=== PATIENT | male | born 1980 | race Caucasian/White ===

== ENCOUNTER 2017-09-25 11:17 | Emergency (ER) | payer OTHER ==
[~2017-09-25] VITALS: Ht 190.5 cm; Wt 92.4 kg
[2017-09-25 11:23] VITALS: Ht 190.5 cm; Wt 92.4 kg
[2017-09-25] MEDS ORDERED: LEVO150T PO (12:04)
[2017-09-25 14:00] VITALS: BP 125/87; PULSE 98; O2SAT 96
--- NOTE | 2017-09-25 14:15 | EMERGENCY ROOM VISIT NOTE ---
ED Visit Note First contact with patient: 11:30 CHIEF COMPLAINT: Suture removal/wound re-check HPI: This patient presents to the ED today for removal of sutures that were placed 13 days ago. The patient had a crush injury, followed by cellulitis and surgery for abscess drainage. The patient had been admitted to a hospital in [place] for 7 days. The patient states he has been unable to work, so had to move back to [place] to live with his mother, as he was unable to pay rent to his roommate. He was scheduled for follow-up with surgeon today, but was unable to make it due to the distance. He did not contact his surgeon, but decided to come to the emergency Department for wound recheck by a medical provider. There has been no swelling, redness, or drainage from the wound. The patient feels like the laceration is healing well. REVIEW OF SYSTEMS: A complete 10 point review of systems was reviewed with the patient with pertinent positives and negatives as per history of present illness. All else were negative. PMH: Hypothyroidism, gout SOCIAL HISTORY: Patient lives locally. He is from the [place] area. He denies drug use. He admits to smoking cigarettes and socially drinking alcohol. PHYSICAL EXAM: Vital Signs: Reviewed Nurse's notes. The patient was initially tachycardic, but the tachycardia improved by discharge. There is a sutured wound on the right thumb with no signs of infection. There is no erythema, swelling, or tenderness. The wound edges are healing, however, the wound edges are dry. EMERGENCY DEPARTMENT COURSE: I contacted the patient's surgeon's office in [place]. I spoke with an office staff member, who states the patient was to have sutures removed today. He did not call or show up for his appointment, but the staff did recommend follow-up at some point for re-check post-op. They did send information regarding the surgery and plan to the ED for review. The sutures were removed without any difficulty and there was no separation of the wound edges. The patient had removed the dry/ skin of the wound edges prior to suture removal. The wound was bandaged with bacitracin ointment and a bandage. I discussed with the patient the importance of orthopedic follow-up, especially with his surgeon. The patient states he understands. Prior to discharge, the patient did request pain medication prescription. He states "I have Percs, but I know there is something stronger than Tylenol, but not a narcotic. I was hoping you could give me something like that." I discussed proper pain management with the patient and advised him that at this point after his procedure, I recommend follow-up with his surgeon if he continues to need pain medication. I did offer diclofenac, meloxicam, prescription ibuprofen, and prescription Naproxen, but the patient states he has all of those at home. He states "A friend told me about some medication that starts with a T..." I advised him that this is likely Tramadol, and that Tramadol is a narcotic. Again , I discussed pain management at home with ibuprofen and Tylenol and the patient states he does not wish to take that many pills every 3-4 hours. I again offered him a prescription NSAID and he declines. I attest that I have personally reviewed the patient's current medication list. Patient was found to have normal blood pressure on screening and does not require follow-up. DIFFERENTIAL DIAGNOSIS: Laceration, fracture, abscess, wound dehiscence, cellulitis, infection, abscess, malignancy, and others DIAGNOSIS: Healing laceration and suture removal Current/Historical Medications Scheduled Levothyroxine Sodium (Synthroid), 150 MCG PO QAM Allergies Coded Allergies: No Known Allergies (Unverified , 09/25/17) Vital Signs Date Time Temp Pulse Resp B/P (MAP) Pulse Ox O2 Delivery O2 Flow Rate FiO2 09/25/17 14:00 98 16 125/87 96 09/25/17 11:23 36.8 120 18 133/93 96 Room Air Departure Information Impression Primary Impression: Injury of thumb, right, superficial, infected Additional Impressions: Cellulitis of thumb, right Encounter for removal of sutures Dispostion Home / Self-Care Condition GOOD Referrals Dr. Vance No Doctor, Assigned (PCP) Mark Yi MD Patient Instructions ED Contusion Finger, ED Infec Skin Cellulitis, ED Wound Check Sutr Removal Infec , [facility] Additional Instructions You seen in the emergency department today for suture removal and wound check. As discussed, the wound on your thumb does not appear to be infected at this time. The sutures were removed without difficulty. Ibuprofen(Motrin, Advil) may be used for fever or pain. Use 600mg every six hours as needed. Take with food. Avoid using more than 2400mg in a 24 hour period. Do not use 2400mg per day for more than three consecutive days without physician direction. Prolonged inappropriate use can lead to stomach upset or ulcers. (AND/OR) Acetaminophen(Tylenol) may be used for fever or pain. Use 1000mg every six hours as needed. Avoid using more than 3000mg in a 24 hour period. Please keep the wound bandaged with antibiotic ointment (Bacitracin or Triple Antibiotic) and clean gauze. Please do not soak the wound in water. Change the bandage at least once or twice daily. Return for any redness, significant swelling, puslike drainage, fever, elevated heart rate, difficulty breathing, nausea, or vomiting. As discussed, it is imperative that you follow-up with your surgeon. Please try to schedule appointment with your surgeon in [place] for recheck and further evaluation. Contact their office at the number provided. If you are absolutely unable to follow up with the surgeon, contact the local orthopedic surgeon and attempt to be seen for follow-up. If you cannot be seen by orthopedics, return to the emergency department in 3-5 days for wound recheck. Problem Qualifiers Primary Impression: Injury of thumb, right, superficial, infected Encounter type: subsequent encounter Qualified Codes: S60.931D - Unspecified superficial injury of right thumb, subsequent encounter; L08.9 - Local infection of the skin and subcutaneous tissue, unspecified
== END 2017-09-25 14:25 | disposition home or self-care (01) ==
LOC: C.EDB 11:19 → C.EDC 14:25
DX: S60.931D Unspecified superficial injury of right thumb, subsequent encounter (principal); X58.XXXD Exposure to other specified factors, subsequent encounter; L08.9 Local infection of the skin and subcutaneous tissue, unspecified; L03.011 Cellulitis of right finger; E03.9 Hypothyroidism, unspecified; F17.210 Nicotine dependence, cigarettes, uncomplicated; Z79.899 Other long term (current) drug therapy

== ENCOUNTER 2017-10-07 21:41 | Emergency (ER) | payer OTHER ==
[~2017-10-07] VITALS: Ht 190.5 cm; Wt 87.6 kg
[~2017-10-07 21:41] MED LIST: LEVO150T PO
[2017-10-07 21:54] VITALS: TEMP 36.7
[2017-10-07] MEDS ORDERED: FAMOTIDINE 20MG/5ML IV PUSH IV STA (21:56)
[2017-10-07] MEDS ORDERED: ONDANSETRON INJ 2 MG/ML 2 ML VIAL IV STA (21:56)
[2017-10-07] MEDS ORDERED: SODIUM CHLORIDE 0.9% 1000ML 1,000 ML IV STA (21:56)
[2017-10-07 22:13] VITALS: Ht 190.5 cm; Wt 87.6 kg
--- NOTE | 2017-10-07 22:21 | DIAGNOSTIC IMAGING REPORT ---
SINGLE VIEW CHEST CLINICAL HISTORY: Sepsis. FINDINGS: An AP, portable, upright chest radiograph is obtained. No prior studies are available for comparison at the time of dictation. The examination is degraded by portable technique and patient rotation. The cardiomediastinal silhouette is unremarkable. The lungs and pleural spaces are clear. No pneumothorax is seen. The bony thorax is grossly intact. IMPRESSION: No active disease in the chest. Electronically signed by: Hema Carter M.D. 10/07/2017 10:20 PM Dictated Date/Time: 10/07/2017 10:19 PM
[2017-10-07 22:23] LABS: BASO % 0.3 %; BASO ABS # 0.03 K/uL (0-0.2); EOS % 0.5 %; EOS ABS # 0.05 K/uL (0-0.5); HEMOGLOBIN 15.4 g/dL (14.0-18.0); IG# 0.02 K/uL (0.00-0.02); LYMPH % 19.6 %; LYMPH ABS # 1.98 K/uL (1.2-3.4); MEAN CELL VOLUME 88.5 fL (80-100); MEAN CORPUSCULAR HGB CONC 32.8 g/dl (32-36); MEAN PLATELET VOLUME 10.1 fL (7.4-10.4); MONO % 8.4 %; MONO ABS # 0.85 K/uL (0.11-0.59); NEUT ABS # 7.19 K/uL (1.4-6.5); PLATELET COUNT 320 K/uL (130-400); RED CELL DISTRIBUTION WIDTH CV 14.6 % (11.5-14.5); RED CELL DISTRIBUTION WIDTH SD 46.8 fL (36.4-46.3); WHITE BLOOD COUNT 10.12 K/uL (4.8-10.8)
[2017-10-07 22:28] LABS: ALBUMIN 4.3 gm/dl (3.4-5.0); ALT/SGPT 19 U/L (12-78); BLOOD UREA NITROGEN 10 mg/dl (7-18); CALCIUM 9.4 mg/dl (8.5-10.1); CARBON DIOXIDE 26 mmol/L (21-32); CREATININE 1.35 mg/dl (0.60-1.40); GLUCOSE 108 mg/dl (70-99); POTASSIUM 3.6 mmol/L (3.5-5.1); SODIUM 140 mmol/L (136-145)
[2017-10-07 22:39] LABS: ALKALINE PHOSPHATASE 67 U/L (45-117); AST/SGOT 14 U/L (15-37); TOTAL PROTEIN 8.4 gm/dl (6.4-8.2)
[2017-10-07 22:52] LABS: INFLUENZA B ANTIGEN Neg for Influ B (NEG)
[2017-10-07 22:56] LABS: INR 1.1 (0.9-1.1); PTT PATIENT 32.4 SECONDS (21.0-31.0)
[2017-10-07] MEDS ORDERED: LORAZEPAM 2 MG/ML 1 ML VIAL IV STA (23:00)
[2017-10-08] MEDS ORDERED: LEVOTHYROXINE 175 MCG TAB PO STA (00:54)
[2017-10-08] MEDS ORDERED: LEVO175T PO (01:43)
[2017-10-08] MEDS ORDERED: ONDANSETRON HOME PACK 4MG OD TAB PO ONE (01:45)
[2017-10-08] MEDS ORDERED: LEVOTHYROXINE 175 MCG TAB PO ONE (02:30)
[2017-10-08 02:49] VITALS: BP 125/89; PULSE 77; O2SAT 98
--- NOTE | 2017-10-08 05:47 | EMERGENCY ROOM VISIT NOTE ---
History First contact with patient: 21:45 Chief Complaint: FLU LIKE SX Stated Complaint: FLU SYMPTOMS History of Present Illness The patient is a 36 year old male who presents to the Emergency Room with complaints of nausea, vomiting, diarrhea, upset stomach with subjective fever and chills and feeling fatigued for the past day. Patient states he has snorted heroin recently. He has not been taking his Synthroid. Patient states he is here visiting friends and was told last month at [facility] that he has an aortic aneurysm. He is concerned about this. He does not know the size. He has not followed up for it yet. Patient was at [facility] for a thumb infection. Patient denies IV drug abuse, chest pain, dyspnea, headache , neck status, sore throat, rashes, leg swelling. Review of Systems See HPI for pertinent positives & negatives. A total of 10 systems reviewed and were otherwise negative. Past Medical/Surgical History Hypothyroidism Social History Smoking Status: Current Every Day Smoker Alcohol Use: occasionally Drug Use: heroin Current/Historical Medications Scheduled Levothyroxine Sodium (Synthroid), 150 MCG PO QAM Levothyroxine Sodium (Synthroid), 175 MCG PO DAILY Physical Exam Vital Signs Date Time Temp Pulse Resp B/P (MAP) Pulse Ox O2 Delivery O2 Flow Rate FiO2 10/08/17 02:49 77 18 125/89 98 10/08/17 00:46 77 18 132/85 98 Room Air 10/07/17 23:04 52 18 143/102 98 Room Air 10/07/17 22:21 55 12 134/102 98 60 140/99 83 167/124 10/07/17 21:54 36.7 61 18 143/102 99 Room Air 10/07/17 21:49 56 Physical Exam VITALS: Vitals are noted on the nurse's note and reviewed by myself. Vital signs stable. GENERAL: White male with multiple tattoos and eyelid tattoos, in no acute distress, nondiaphoretic, well-developed well-nourished. SKIN: The skin was without rashes, erythema, edema, or bruising. There is no tenting of the skin. Capillary reflex less than 2 seconds. HEAD: Normocephalic atraumatic. EARS: External auditory canals clear, tympanic membranes pearly suarez without erythema or effusion bilaterally. EYES: Pupils equal round and reactive to light and accommodation. Conjunctivae without injection, sclerae without icterus. Extraocular movements intact. NOSE: Patent, turbinates without inflammation or discharge. MOUTH: Mucous membranes mildly dry. Pharynx without erythema or exudate. Uvula midline. Airway patent. Tongue does not deviate. NECK: Supple without nuchal rigidity. No lymphadenopathy. No thyromegaly. Cervical spine is nontender. No JVD. HEART: Regular rate and rhythm without murmurs gallops or rubs. LUNGS: Clear to auscultation bilaterally without wheezes, rales or rhonchi. No dullness to percussion. No retractions or accessory muscle use. ABDOMEN: Positive bowel sounds x 4. Normal tympanic percussion. Soft, nontender, without masses or organomegaly. Rodriguez sign negative. No guarding or rebound tenderness. MUSCULOSKELETAL: No muscle atrophy, erythema, or edema noted. NEURO: Patient was alert and oriented to person place and time. Normal sensation to light and sharp touch. No focal neurological deficits. Medical Decision & Procedures Laboratory Results 10/07/17 21:50 Red Blood Count 5.31, Mean Corpuscular Volume 88.5, Mean Corpuscular Hemoglobin 29.0, Mean Corpuscular Hemoglobin Concent 32.8, Mean Platelet Volume 10.1, Neutrophils (%) (Auto) 71.0, Lymphocytes (%) (Auto) 19.6, Monocytes (%) (Auto) 8.4, Eosinophils (%) (Auto) 0.5, Basophils (%) (Auto) 0.3, Neutrophils # (Auto) 7.19, Lymphocytes # (Auto) 1.98, Monocytes # (Auto) 0.85, Eosinophils # (Auto) 0.05, Basophils # (Auto) 0.03 10/07/17 21:50 Test 10/07/17 21:50 10/07/17 22:13 10/07/17 22:26 10/08/17 00:40 White Blood Count 10.12 K/uL (4.8-10.8) Red Blood Count 5.31 M/uL (4.7-6.1) Hemoglobin 15.4 g/dL (14.0-18.0) Hematocrit 47.0 % (42-52) Mean Corpuscular Volume 88.5 fL (80-100) Mean Corpuscular Hemoglobin 29.0 pg (25-34) Mean Corpuscular Hemoglobin Concent 32.8 g/dl (32-36) Platelet Count 320 K/uL (130-400) Mean Platelet Volume 10.1 fL (7.4-10.4) Neutrophils (%) (Auto) 71.0 % Lymphocytes (%) (Auto) 19.6 % Monocytes (%) (Auto) 8.4 % Eosinophils (%) (Auto) 0.5 % Basophils (%) (Auto) 0.3 % Neutrophils # (Auto) 7.19 K/uL (1.4-6.5) Lymphocytes # (Auto) 1.98 K/uL (1.2-3.4) Monocytes # (Auto) 0.85 K/uL (0.11-0.59) Eosinophils # (Auto) 0.05 K/uL (0-0.5) Basophils # (Auto) 0.03 K/uL (0-0.2) RDW Standard Deviation 46.8 fL (36.4-46.3) RDW Coefficient of Variation 14.6 % (11.5-14.5) Immature Granulocyte % (Auto) 0.2 % Immature Granulocyte # (Auto) 0.02 K/uL (0.00-0.02) Erythrocyte Sedimentation Rate 32 mm/hr (0-14) Prothrombin Time 11.2 SECONDS (9.0-12.0) Prothromb Time International Ratio 1.1 (0.9-1.1) Activated Partial Thromboplast Time 32.4 SECONDS (21.0-31.0) Partial Thromboplastin Ratio 1.2 Anion Gap 11.0 mmol/L (3-11) Est Creatinine Clear Calc Drug Dose 90.4 ml/min Estimated GFR () 77.7 Estimated GFR (Non- 67.1 BUN/Creatinine Ratio 7.3 (10-20) Calcium Level 9.4 mg/dl (8.5-10.1) Magnesium Level 2.4 mg/dl (1.8-2.4) Total Bilirubin 1.6 mg/dl (0.2-1) Aspartate Amino Transf (AST/SGOT) 14 U/L (15-37) Alanine Aminotransferase (ALT/SGPT) 19 U/L (12-78) Alkaline Phosphatase 67 U/L (45-117) Troponin I < 0.015 ng/ml (0-0.045) C-Reactive Protein 0.36 mg/dl (0-0.29) Total Protein 8.4 gm/dl (6.4-8.2) Albumin 4.3 gm/dl (3.4-5.0) Globulin 4.1 gm/dl (2.5-4.0) Albumin/Globulin Ratio 1.0 (0.9-2) Thyroid Stimulating Hormone (TSH) 64.300 uIu/ml (0.300-4.500) Free Thyroxine 0.55 ng/dl (0.80-1.60) Total Triiodothyronine 0.42 ng/ml (0.60-1.81) Influenza Type A Antigen Neg for Influ A (NEG) Influenza Type B Antigen Neg for Influ B (NEG) Bedside Lactic Acid Venous 1.42 mmol/L (0.90-1.70) Urine Opiates Screen POS (NEG) Urine Methadone, Qualitative NEG (NEG) Urine Barbiturates NEG (NEG) Urine Phencyclidine (PCP) Level NEG (NEG) Ur Amphetamine/Methamphetamine NEG (NEG) MDMA (Ecstasy) Screen NEG (NEG) Urine Benzodiazepines Screen NEG (NEG) Urine Cocaine Metabolite NEG (NEG) Urine Marijuana (THC) NEG (NEG) Medications Administered Medications (Trade) Dose Ordered Sig/Mateo Route Start Time Stop Time Status Last Admin Dose Admin Sodium Chloride 1,000 ml @ 999 mls/hr Q1H1M STAT IV 10/07/17 21:56 10/07/17 22:56 DC 10/07/17 22:25 999 MLS/HR Ondansetron HCl (Zofran Inj) 4 mg NOW STAT IV 10/07/17 21:56 10/07/17 22:02 DC 10/07/17 22:25 4 MG Famotidine (Pepcid 20mg Iv Push) 20 mg ONE STAT IV 10/07/17 21:56 10/07/17 22:02 DC 10/07/17 22:25 20 MG Lorazepam (Ativan Inj) 1 mg NOW STAT IV 10/07/17 23:00 10/07/17 23:02 DC 10/07/17 23:08 1 MG Levothyroxine Sodium (Synthroid Tab) 175 mcg NOW STAT PO 10/08/17 00:54 10/08/17 00:56 DC 10/08/17 01:28 175 MCG Ondansetron HCl (ZOFRAN ODT 4MG Home Pack) 1 homepack UD ONCE PO 10/08/17 01:45 10/08/17 01:46 DC 10/08/17 01:52 1 HOMEPACK Levothyroxine Sodium (Synthroid Tab) 175 mcg NOW ONCE PO 10/08/17 02:30 10/08/17 02:31 DC 10/08/17 02:30 175 MCG ED Course Prior records/ancillary studies reviewed. Triage Nursing notes reviewed. The patient's history was concerning for nausea, vomiting, diarrhea, and upset stomach and fatigue. Differential diagnosis: Etiologies such as gastroenteritis, drug withdrawal, food borne illness, infections, appendicitis, diverticulitis, inflammatory bowel disease, obstruction, GI bleed, biliary pathology, as well as others were entertained. Physical examination findings: As above. Abdominal examination revealed no tenderness. Vital signs reviewed and revealed stable. ER treatment provided: IV hydration 1 L NSS. Zofran, Pepcid, Ativan, Synthroid On reassessment the patient felt better. Patient was tolerating p.o. intake. Diagnostics interpretation by me: EKG: Normal sinus, normal intervals, no acute ST-T changes. Impression normal sinus rhythm interpreted by myself. The labs revealed elevated TSH. Positive opiate screen. Negative troponin Imaging studies: SINGLE VIEW CHEST CLINICAL HISTORY: Sepsis. FINDINGS: An AP, portable, upright chest radiograph is obtained. No prior studies are available for comparison at the time of dictation. The examination is degraded by portable technique and patient rotation. The cardiomediastinal silhouette is unremarkable. The lungs and pleural spaces are clear. No pneumothorax is seen. The bony thorax is grossly intact. IMPRESSION: No active disease in the chest. Electronically signed by: Hema Carter M.D. I did obtain the records from [facility] from the patient's admission in August as he states that he had an aneurysm. There is no mention of this. I did specifically ask about this. All there was his information about his thumb infection. I informed the patient of this and he did not seem alarmed. He had no more questions for me in regards to his aneurysm. I still recommended that he see his family care for further information regarding this. Patient had no chest pain. He had no back pain or syncopal episodes. This appears to be consistent with vomiting and diarrhea with hypothyroidism. Patient on his own decided not to take his Synthroid anymore. Patient has been using illegal drugs. He could be withdrawing from the heroine and could be contributing to some of his symptoms today. He was strongly encouraged to take his Synthroid. He was encouraged not to use illegal drugs. Patient then began to bag for more Ativan. I informed her I would not be giving him any more. He was extremely displeased with this. The patient's mother called and spoke to the nurse. All questions are answered. She was requesting an extra dose of Synthroid for tomorrow until she could pay for his prescription. I felt this is reasonable. Patient was neurovascularly and neurologically intact. He did not have acute abdomen on exam. He is tolerating fluids. By the evaluation outlined above emergent etiologies such as appendicitis, diverticulitis, obstruction, cardiac sources, mesenteric ischemia, aortic pathology, inflammatory bowel disease, renal colic, PUD, biliary pathology, UTI, as well as others were deemed relatively unlikely. The pt informed about the findings as listed above. All questions were answered and displeased with the treatment. Return instructions were outlined and the patient was discharged in stable condition. Outpatient prescription management: Synthroid Case reviewed with my attending Referral: The patient was referred to their primary care physician for follow-up in 2 to 3 days for a recheck of the current condition. Medical Decision As above Medication Reconcilliation Current Medication List: was personally reviewed by me Blood Pressure Screening Patient's blood pressure: Normal blood pressure Impression Primary Impression: Hypothyroidism Additional Impression: Nausea vomiting and diarrhea Departure Information Dispostion Home / Self-Care Condition GOOD Prescriptions Levothyroxine Sodium (SYNTHROID) 175 Mcg Tab 175 MCG PO DAILY, #30 TAB Prov: Ludmila Winn ., GURDEEP 10/08/17 Forms HOME CARE DOCUMENTATION FORM, IMPORTANT VISIT INFORMATION Patient Instructions Vomit Diarrhea Self Care, [facility] Additional Instructions DO NOT drive, drink alcohol, operate machinery, or perform dangerous activities today. You were given medications in the ER that can affect your ability to safely function or operate a vehicle. You need to restart taking your Synthroid. You feel fatigued and exhausted because your thyroid is off. Zofran(odansetron) tablets 4mg: Take one and allow it to dissolve in your mouth every four to six hours as needed for nausea or vomiting. Ibuprofen(Motrin, Advil) may be used for fever or pain. Use 600mg every six hours as needed. Take with food. Avoid using more than 2400mg in a 24 hour period. Do not use 2400mg per day for more than three consecutive days without physician direction. Prolonged inappropriate use can lead to stomach upset or ulcers. (AND/OR) Acetaminophen(Tylenol) may be used for fever or pain. Use 1000mg every six hours as needed. Avoid using more than 3000mg in a 24 hour period. Rest and drink plenty of fluids as tolerated. Slow sips of water or sports drinks are recommended instead of large amounts all at once. Continue current medications. Once your stomach is settled start with a clear liquid diet (jello, soup broth, etc.) and then advance as tolerated. You should avoid full, heavy meals for about 24 hrs from the time your symptoms resolved. Return to the ER for persistent vomiting, fevers, abdominal pain, chest pains, difficulty breathing, black or bloody stools, worsening of your condition, or as needed. Follow up with your primary physician in 2-3 days for a recheck of your current condition. Problem Qualifiers Primary Impression: Hypothyroidism Hypothyroidism type: unspecified Qualified Codes: E03.9 - Hypothyroidism, unspecified
== END 2017-10-08 02:51 | disposition home or self-care (01) ==
LOC: EDBD 21:41 → C.EDB 21:42
DX: E03.9 Hypothyroidism, unspecified (principal); R11.2 Nausea with vomiting, unspecified; R19.7 Diarrhea, unspecified; F11.90 Opioid use, unspecified, uncomplicated; F17.200 Nicotine dependence, unspecified, uncomplicated